=== PATIENT | male | born 1985 | race Two or more races ===

== ENCOUNTER 2016-08-15 00:20 | Emergency (ER) | payer MEDICAID ==
[2016-08-15] MEDS ORDERED: Sodium Chloride 0.9% 10 ML Syringe FLUSH PRN (00:30)
[2016-08-15] MEDS ORDERED: Sodium Chloride 0.9% 1,000 ML IV ONE (00:30)
[2016-08-15] MEDS ORDERED: GI Cocktail Oral Solution 30 ML PO ONE (00:31)
[2016-08-15] MEDS ORDERED: Ondansetron 4 MG/2 ML SDV IVPUSH ONE (00:31)
[2016-08-15 00:32] VITALS: BP 143/79
[2016-08-15 01:18] LABS: CHLORIDE,CL 104 mmol/L (98-107); SODIUM,NA 142 mmol/L (136-145)
[2016-08-15] MEDS ORDERED: Famotidine 20 MG Tab PO ONE (01:48)
[2016-08-15] MEDS ORDERED: Aluminum Hydroxide/Magnesium Hydroxide/Simethicone Susp 30 ML Cup PO ONE (01:48)
[2016-08-15] MEDS ORDERED: Take Home: Ondansetron 4 MG Tab.DIS, 2 Tab Pack PO ONE (01:49)
--- NOTE | 2016-08-15 06:59 | ER ---
Date of Service: 08/15/2016 SUBJECTIVE: Fermin presents to the emergency room with complaints of epigastric pain. He states that the discomfort woke him from his sleep. He characterizes the discomfort as a burning sensation. He states that he did go out drinking last night and states that he has been experiencing some gastritis since that time. He states that he is nauseated and did vomit several times. He states that he has not experienced discomfort like this in the past. Again, he did eat several hours ago. The discomfort woke him from his sleep and does not appear to have a postprandial presentation. PAST MEDICAL HISTORY: 1. Seizure disorder. 2. Chronic neck and back pain. MEDICATIONS: Cyclobenzaprine 10 mg every 8 hours p.r.n. ALLERGIES: NKDA. REVIEW OF SYSTEMS: General: No fever or chills. HEENT: No sore throat, rhinorrhea, or congestion. Respiratory: No shortness of breath. Cardiac: Denies any substernal chest pain. No jaw, arm, neck, or back pain. Gastrointestinal: Complains of diffuse upper abdominal pain. Does complain of acidic feeling in his throat as well. Denies any melena, hematochezia, hematemesis. Genitourinary: Denies any dysuria. Musculoskeletal: No myalgias or arthralgias. PHYSICAL EXAMINATION: General: This is a 31-year-old male patient, who is in no acute distress. Vital Signs: Blood pressure is 143/79, pulse rate 80, temperature is 36.8, respiratory rate is 20, O2 saturations 100%. Skin: Warm, pink, and dry. HEENT: Head is normocephalic and atraumatic. Mouth, oral mucosa is moist. Lungs: Clear to auscultation. Heart: Regular rate and rhythm. Abdomen: Soft, diffusely tender in the upper abdominal region. He has no guarding. No rigidity noted. No hepatosplenomegaly noted. Bowel sounds are normoactive. Extremities: Without edema. Neurologic: He is alert and oriented. Answers all questions appropriately. LABORATORY DATA: WBCs 11.4, hemoglobin is 16.1, platelets are 168. Chemistry; sodium is 142, potassium is 3.3, chloride is 104, bicarb is 27, BUN is 22, creatinine is 0.8. Creatinine clearance was 100. GFR is greater than 60. Glucose is 113, calcium is 8.8, corrected calcium is 9.0, total bilirubin is 0.7, AST is 21, ALT is 28, alkaline phosphatase is 89, total protein is 6.9, albumin is 3.7, lipase is 84. EMERGENCY ROOM COURSE: IV access was established. The patient was given a liter of normal saline IV. He was given Zofran 4 mg IV and was also given GI cocktail. He was also given an extra 30 mL of Mylanta in addition to the GI cocktail. The patient was also given Pepcid 20 mg p.o. He did report some improvement in his discomfort. He stated his nausea was improving as well. He remained stable in my care in the emergency room. ASSESSMENT: Gastritis. PLAN: The patient will be discharged. Zofran ODT 1 every 8 hours as needed for nausea and vomiting. He was given 2 for August supply here in the hospital to take home. Obtain Pepcid and take 1 ODT tablet every 8 hours, 120 mg over-the- counter tablets starting tomorrow morning. Establish care and follow up in the clinic in the next 7 days. All questions were answered. MWK: 08/15/2016 02:04:39 MODL: 08/15/2016 06:52:49 /[id number]
== END 2016-08-15 02:11 | disposition home or self-care (01) ==
LOC: VM.ED 00:20
DX: K52.9 Noninfective gastroenteritis and colitis, unspecified (principal)
CPT/HCPCS: 80053; 83690; 85025; 96361; 96374; 99284; A9270; J2405; J7030

== ENCOUNTER 2016-08-27 00:15 | Emergency (ER) | payer MEDICAID ==
[2016-08-27] MEDS ORDERED: Ketorolac 30 MG/ML SDV IVPUSH ONE (00:18)
[2016-08-27] MEDS ORDERED: Sodium Chloride 0.9% 10 ML Syringe FLUSH PRN (00:18)
--- NOTE | 2016-08-27 00:28 | EDM.PDOC ---
ED HPI SEIZURE COMPLAINT - General Chief Complaint: Neurological Problem Stated Complaint: Seizure Time Seen by Provider: 08/27/16 00:20 Source of Information: Reports: Patient, EMS notes reviewed, RN, RN notes reviewed History Limitations: Reports: No limitations - History of Present Illness INITIAL COMMENTS - FREE TEXT/NARRATIVE: Patient is brought to the ED at [facility] via EMS s/p seizure at home. Patient states he was laying in bed and the next thing he remembered waking up feeling very tired and confused. He then called 911. Patient has a long standing history of seizures. Patient admits he is non-compliant with taking his seizure medication due to financial issues. Patient denies any head injury or trauma. Patient denies any N/V/D. No loss of bowel or bladder function. Patient has had many seizures in the past due to not having the medication. Symptom Onset Date: 08/26/16 Symptom Onset Time: 23:42 Timing/Duration: Reports: resolved prior to arrival Event Occurred (Where): home Event (Witnessed/Unwitnessed): unwitnessed Quality: Reports: other (unknown as patien was home alone) Context: Reports: missed med dose(s) Pre Event Symptom(s): Reports: no other symptoms Event Symptoms: Denies: incontinence, tongue biting Post Event Symptoms: Reports: confused, headache Treatments [employer]: Reports: Other (see below) (none) - Related Data Allergies/ADRs: Allergies Allergy/AdvReac Type Severity Reaction Status Date / Time No Known Allergies Allergy Verified 08/27/16 00:15 Past Medical History Neurological History: Reports: Seizure, Other (see below) Other Neuro History: Diagnosed with seizures roughly 5 years ago while in skilled nursing. States he stopped taking his medication because it made him feel aggressive. Psychiatric History: Reports: Depression - Past Surgical History HEENT Surgical History: Reports: Oral surgery, Tonsillectomy Social & Family History - Family History Family Medical History: Noncontributory - Tobacco Use Smoking Status *Q: Current Some Day Smoker Years of Tobacco use: 1 Packs/Tins Daily: 0.1 Used Tobacco, but Quit: No - Caffeine Use Caffeine Use: Reports: None - Recreational Drug Use Recreational Drug Use: No ED ROS GENERAL - Review of Systems Review Of Systems: See Below Constitutional: Denies: fever, chills, weakness Respiratory: Denies: shortness of breath, cough Cardiovascular: Denies: Chest pain, Palpitations GI/Abdominal: Denies: Abdominal pain, Diarrhea, Nausea, Vomiting Skin: Reports: no symptoms Neurological: Reports: confusion, headache, seizure - Physical Exam Exam: See Below Exam Limited By: No limitations General Appearance: alert, no apparent distress Eye Exam: bilateral eye: EOMI, normal inspection, PERRL Throat/Mouth: Normal inspection, Normal gums, Normal oropharynx, No airway compromise Head Exam: atraumatic, normocephalic Neck: supple Respiratory/Chest: no respiratory distress, lungs clear, normal breath sounds Cardiovascular: regular rate, rhythm GI/Abdominal: normal bowel sounds, soft, non tender Neuro Exam (Abbreviated): alert, oriented, normal cognition Skin Exam: Warm, Dry, Intact, Normal color, No rash Course - Orders/Labs/Meds Orders: Active Orders 24 hr Category Date Time Status Head wo Cont [CT] Stat Exams 08/27/16 00:16 Taken CARBAMAZEPINE [REF] Stat Lab 08/27/16 00:30 Received Sodium Chloride 0.9% [Normal Saline] 1,000 ml Med 08/27/16 00:30 Active IV ASDIRECTED Sodium Chloride 0.9% [Saline Flush] Med 08/27/16 00:18 Active 10 ml FLUSH ASDIRECTED PRN Peripheral IV Insertion Adult [OM.PC] Routine Oth 08/27/16 00:18 Ordered Medication Orders Sodium Chloride (Normal Saline) 1,000 mls @ 999 mls/hr IV ASDIRECTED JONATAN Last Admin: 08/27/16 00:35 Dose: 999 mls/hr Sodium Chloride (Saline Flush) 10 ml FLUSH ASDIRECTED PRN PRN Reason: Keep Vein Open Labs: Laboratory Tests 08/27/16 08/27/16 08/27/16 Range/Units 00:30 00:30 01:11 WBC 8.6 (4.0-10.0) x10^3/uL RBC 5.39 (4.5-6.0) x10^6/uL Hgb 16.3 (14.0-18.0) g/dL Hct 47.8 (40.0-52.0) % MCV 88.7 (78.0-93.0) fL MCH 30.2 (26.0-32.0) pg MCHC 34.1 (32.0-36.0) g/dL RDW Coeff of Jovita 12.3 (10.0-15.0) % Plt Count 191 (130-400) x10^3/uL Neut % (Auto) 52.7 (50.0-80.0) % Lymph % (Auto) 33.9 (25.0-50.0) % Nicol[place] % (Auto) 10.6 (2.0-11.0) % Eos % (Auto) 2.6 (0.0-4.0) % Baso % (Auto) 0.2 (0.2-1.2) % Sodium 139 (136-145) mmol/L Potassium 3.2 L (3.5-5.1) mmol/L Chloride 104 (98-107) mmol/L Carbon Dioxide 28 (21-32) mmol/L BUN 20 H (7-18) mg/dL Creatinine 0.9 (0.70-1.30) mg/dL Est Cr Clr Drug Dosing TNP Estimated GFR (MDRD) > 60 Glucose 124 H (74-106) mg/dL Calcium 7.9 L (8.5-10.1) mg/dL Urine Color (YELLOW) Urine Appearance (CLEAR) Urine pH (5.0-8.0) Ur Specific [place] Urine Protein (NEGATIVE) mg/dL Urine Glucose (UA) (NEGATIVE) mg/dL Urine Ketones (NEGATIVE) mg/dL Urine Occult Blood (NEGATIVE) Urine Nitrite (NEGATIVE) Urine Bilirubin (NEGATIVE) Urine Urobilinogen (0.2) EU/dL Ur Leukocyte Esterase (NEGATIVE) Urine RBC (NOT SEEN) /HPF Urine WBC (NOT SEEN) /HPF Ur Squamous Epith Cells (NEGATIVE) /HPF Amorphous Sediment Urine Bacteria (NEGATIVE) /HPF Urine Mucus (NEGATIVE) /LPF Urine Opiates Screen Negative (NEAGTIVE) Ur Buprenorphine Scrn Negative (NEGATIVE) Ur Oxycodone Screen Negative (NEGATIVE) Urine Methadone Screen Negative (NEGATIVE) Ur Barbiturates Screen Negative (NEGATIVE) Ur Tricyclics Screen Negative (NEGATIVE) Ur Amphetamine Screen Negative (NEGATIVE) U Methamphetamines Scrn Negative (NEGATIVE) Urine MDMA Screen Negative (NEGATIVE) U Benzodiazepines Scrn Negative (NEGATIVE) U Cocaine Metab Screen Negative (NEGATIVE) U Marijuana (THC) Screen Negative (NEGATIVE) 08/27/16 Range/Units 01:11 WBC (4.0-10.0) x10^3/uL RBC (4.5-6.0) x10^6/uL Hgb (14.0-18.0) g/dL Hct (40.0-52.0) % MCV (78.0-93.0) fL MCH (26.0-32.0) pg MCHC (32.0-36.0) g/dL RDW Coeff of Jovita (10.0-15.0) % Plt Count (130-400) x10^3/uL Neut % (Auto) (50.0-80.0) % Lymph % (Auto) (25.0-50.0) % Nicol[place] % (Auto) (2.0-11.0) % Eos % (Auto) (0.0-4.0) % Baso % (Auto) (0.2-1.2) % Sodium (136-145) mmol/L Potassium (3.5-5.1) mmol/L Chloride (98-107) mmol/L Carbon Dioxide (21-32) mmol/L BUN (7-18) mg/dL Creatinine (0.70-1.30) mg/dL Est Cr Clr Drug Dosing Estimated GFR (MDRD) Glucose (74-106) mg/dL Calcium (8.5-10.1) mg/dL Urine Color Yellow (YELLOW) Urine Appearance Slightly cloudy H (CLEAR) Urine pH 7.0 (5.0-8.0) Ur Specific [place] 1.025 Urine Protein Negative (NEGATIVE) mg/dL Urine Glucose (UA) Negative (NEGATIVE) mg/dL Urine Ketones Trace H (NEGATIVE) mg/dL Urine Occult Blood Negative (NEGATIVE) Urine Nitrite Negative (NEGATIVE) Urine Bilirubin Negative (NEGATIVE) Urine Urobilinogen 1.0 (0.2) EU/dL Ur Leukocyte Esterase Negative (NEGATIVE) Urine RBC Not seen (NOT SEEN) /HPF Urine WBC 0-5 (NOT SEEN) /HPF Ur Squamous Epith Cells Not seen (NEGATIVE) /HPF Amorphous Sediment Moderate Urine Bacteria Rare (NEGATIVE) /HPF Urine Mucus Many H (NEGATIVE) /LPF Urine Opiates Screen (NEAGTIVE) Ur Buprenorphine Scrn (NEGATIVE) Ur Oxycodone Screen (NEGATIVE) Urine Methadone Screen (NEGATIVE) Ur Barbiturates Screen (NEGATIVE) Ur Tricyclics Screen (NEGATIVE) Ur Amphetamine Screen (NEGATIVE) U Methamphetamines Scrn (NEGATIVE) Urine MDMA Screen (NEGATIVE) U Benzodiazepines Scrn (NEGATIVE) U Cocaine Metab Screen (NEGATIVE) U Marijuana (THC) Screen (NEGATIVE) Meds: Medications Generic Name Dose Route Start Last Admin Trade Name Freq PRN Reason Stop Dose Admin Sodium Chloride 1,000 mls @ 999 mls/hr 08/27/16 00:30 08/27/16 00:35 Normal Saline IV 999 mls/hr ASDIRECTED JONATAN Administration Sodium Chloride 10 ml 08/27/16 00:18 Saline Flush FLUSH ASDIRECTED PRN Keep Vein Open Discontinued Medications Generic Name Dose Route Start Last Admin Trade Name Freq PRN Reason Stop Dose Admin Ketorolac Tromethamine 30 mg 08/27/16 00:18 08/27/16 00:35 Toradol IVPUSH 08/27/16 00:19 30 mg ONETIME ONE Administration Potassium Chloride 40 meq 08/27/16 01:10 Klor-Con M20 PO 08/27/16 01:11 ONETIME ONE Departure - Departure Time of Disposition: 01:33 Disposition: Home, Self-Care 01 Condition: good Clinical Impression: Seizure disorder Instructions: Seizure, Adult, [id number] Referrals: PCP,None [Primary Care Provider] - Forms: ED Department Discharge Additional Instructions: 1. Stay well hydrated and rest 2. Take your seizure medications 3. Make an appointment to establish care with a Primary care provider ED Communication - ED Communication Date/Time Date: 08/27/16 Time Called: 01:33 - Discussed Case With (1) Discussed Case With (1): Radiologist Person/s Notified (1): Jaylen Almazan - Conversation Summary Radiology Reading Discussed with Radiologist: Yes Summary Comment: CT of Head does not show any acute pathology; normal CT of head - Problem List Review Problem List Initiated/Reviewed/Updated: Yes - My Orders Last 24 Hours: My Active Orders 08/27/16 00:16 Head wo Cont [CT] Stat 08/27/16 00:18 Sodium Chloride 0.9% [Saline Flush] 10 ml FLUSH ASDIRECTED PRN Peripheral IV Insertion Adult [OM.PC] Routine 08/27/16 00:30 CARBAMAZEPINE [REF] Stat Sodium Chloride 0.9% [Normal Saline] 1,000 ml IV ASDIRECTED - Assessment/Plan Last 24 Hours: My Active Orders 08/27/16 00:16 Head wo Cont [CT] Stat 08/27/16 00:18 Sodium Chloride 0.9% [Saline Flush] 10 ml FLUSH ASDIRECTED PRN Peripheral IV Insertion Adult [OM.PC] Routine 08/27/16 00:30 CARBAMAZEPINE [REF] Stat Sodium Chloride 0.9% [Normal Saline] 1,000 ml IV ASDIRECTED
[2016-08-27] MEDS ORDERED: Sodium Chloride 0.9% 1,000 ML IV SCH (00:30)
[2016-08-27 00:48] LABS: CHLORIDE,CL 104 mmol/L (98-107); SODIUM,NA 139 mmol/L (136-145)
[2016-08-27] MEDS ORDERED: Potassium Chloride 20 MEQ Tab.ER PO ONE (01:10)
[2016-08-27] MEDS ORDERED: Potassium Chloride 20 MEQ Tab.ER ONE (01:45)
[2016-08-27 02:42] VITALS: BP 132/78
== END 2016-08-27 01:55 | disposition home or self-care (01) ==
LOC: VM.ED 00:15
DX: G40.909 Epilepsy, unspecified, not intractable, without status epilepticus (principal)
CPT/HCPCS: 70450; 80048; 80156; 80305; 81001; 85025; 96365; 96375; 99285; A9270; J1885; J7030

== ENCOUNTER 2016-09-27 00:35 | Emergency (ER) | payer MEDICAID ==
[2016-09-27] MEDS ORDERED: carBAMazepine 200 MG Tab PO ONE (01:10)
--- NOTE | 2016-09-27 01:28 | EDM.PDOC ---
[id number]: Out of seizure medication Time Seen by Provider: 09/27/16 01:07 Source of Information: Reports: Patient History Limitations: Reports: No limitations - History of Present Illness INITIAL COMMENTS - FREE TEXT/NARRATIVE: Patient here because he states he feels like a seizure is coming on. He states he is out of his tegretol due to it falling out of his work clothes. 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 He describes his aura as being light sensitive, sound sensitive, feeling tired and stressed. His only complaint is being tired. No headache, no unilateral weakness. States he has had a sore throat for the last 2 weeks. No fever, chills, sweating. Eating and drinking fine. No bowel or bladder problems. Symptom Onset Date: 09/26/16 Timing/Duration: Reports: gradual onset Context: Reports: missed med dose(s) Pre Event Symptom(s): Reports: aura Event Symptoms: Reports: no other symptoms - Related Data Allergies/ADRs: Allergies Allergy/AdvReac Type Severity Reaction Status Date / Time No Known Allergies Allergy Verified 08/27/16 00:15 Home Meds: Home Meds . [Unable to Verify Home Med List] 08/27/16 [History] Past Medical History Neurological History: Reports: Seizure, Other (see below) Other Neuro History: Diagnosed with seizures roughly 5 years ago while in nursing home. States he stopped taking his medication because it made him feel aggressive. Psychiatric History: Reports: Depression - Past Surgical History HEENT Surgical History: Reports: Oral surgery, Tonsillectomy Social & Family History - Family History Family Medical History: Noncontributory - Tobacco Use Smoking Status *Q: Current Some Day Smoker Years of Tobacco use: 1 Packs/Tins Daily: 0.1 Used Tobacco, but Quit: No - Caffeine Use Caffeine Use: Reports: None - Recreational Drug Use Recreational Drug Use: No ED ROS GENERAL - Review of Systems Review Of Systems: ROS reveals no pertinent complaints other than HPI. - Physical Exam Exam: See Below Exam Limited By: No limitations General Appearance: alert, WD/WN, no apparent distress Eye Exam: bilateral eye: EOMI, PERRL Ears: normal external exam, normal TMs Nose: normal inspection Throat/Mouth: Normal inspection, Normal oropharynx Head Exam: atraumatic, normocephalic Neck: normal inspection Respiratory/Chest: no respiratory distress, lungs clear, normal breath sounds Cardiovascular: normal peripheral pulses, regular rate, rhythm, no edema GI/Abdominal: normal bowel sounds, soft, non tender Neuro Exam (Abbreviated): alert, oriented, CN II-XII intact, normal cognition, normal gait, normal reflexes, no motor/sensory deficits Extremities: normal inspection, normal range of motion, normal capillary refill Psychiatric: normal affect, flat affect Skin Exam: Warm, Dry, Intact, Normal color Course - Orders/Labs/Meds Orders: Active Orders 24 hr Category Date Time Status CARBAMAZEPINE [REF] Stat Lab 09/27/16 01:52 Received Meds: Medications Discontinued Medications Generic Name Dose Route Start Last Admin Trade Name Freq PRN Reason Stop Dose Admin Carbamazepine 200 mg 09/27/16 01:10 Tegretol Tab PO 09/27/16 01:11 ONETIME ONE Departure - Departure Time of Disposition: 01:56 Disposition: Home, Self-Care 01 Condition: good Clinical Impression: Seizure disorder Instructions: Epilepsy, [id number] Additional Instructions: I gave you a dose of carbamazepine for this evening as well as a prescription for the next month. You need to establish with a primary care doctor that can both monitor your seizure medication, as well as provide information and assistance with any lingering issues you may have. You need to get plenty of rest, drink water and protect your medications. Please call us with any questions or concerns in the meantime. - Problem List & Annotations (1) Seizure disorder SNOMED Code(s): 954509584 Code(s): G40.909 - EPILEPSY, UNSP, NOT INTRACTABLE, WITHOUT STATUS EPILEPTICUS Status: Acute Priority: Low Current Visit: Yes - Problem List Review Problem List Initiated/Reviewed/Updated: Yes - My Orders Last 24 Hours: My Active Orders 09/27/16 01:52 CARBAMAZEPINE [REF] Stat - Assessment/Plan Last 24 Hours: My Active Orders 09/27/16 01:52 CARBAMAZEPINE [REF] Stat Assessment:: seizure disorder Plan: I gave you a dose of carbamazepine for this evening as well as a prescription for the next month. You need to establish with a primary care doctor that can both monitor your seizure medication, as well as provide information and assistance with any lingering issues you may have. You need to get plenty of rest, drink water and protect your medications. Please call us with any questions or concerns in the meantime.
[2016-09-27 07:30] VITALS: BP 110/61
== END 2016-09-27 01:56 | disposition home or self-care (01) ==
LOC: VM.ED 00:35
DX: G40.909 Epilepsy, unspecified, not intractable, without status epilepticus (principal); F32.9 Major depressive disorder, single episode, unspecified; Z98.890 Other specified postprocedural states
CPT/HCPCS: 36415; 80156; 99284; A9270

== ENCOUNTER 2016-12-04 19:36 | Emergency (ER) | payer MEDICAID ==
[2016-12-04] MEDS ORDERED: Doxycycline 100 MG Cap PO ONE (20:01)
--- NOTE | 2016-12-04 20:09 | EDM.PDOC ---
ED HPI GENERAL MEDICAL PROBLEM - General Chief Complaint: General Stated Complaint: nausea, unable to eat, tick bites Time Seen by Provider: 12/04/16 19:51 Source of Information: Reports: Patient History Limitations: Reports: No Limitations - History of Present Illness INITIAL COMMENTS - FREE TEXT/NARRATIVE: Patient states he removed ticks from his body on Saturday night. He is complaining of a headache, nausea, inability to eat for the last several days. No fever. Has been seen here in the past. 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 No shortness of breath, no neck stiffness, no abdominal pain, no red spots on his flank where tick were removed. He has no other complaints. History of seizure disorder. Onset Date: 12/03/16 Severity: Moderate Associated Symptoms: Reports: Headaches, Malaise, Nausea/Vomiting - Related Data Allergies Allergy/AdvReac Type Severity Reaction Status Date / Time No Known Allergies Allergy Verified 12/12/16 00:36 Home Meds: Home Meds carBAMazepine [Tegretol] 200 mg PO BID 09/27/16 [History] Past Medical History Neurological History: Reports: Seizure, Other (See Below) Other Neuro History: Diagnosed with seizures roughly 5 years ago while in longterm. States he stopped taking his medication because it made him feel aggressive. Psychiatric History: Reports: Depression - Past Surgical History HEENT Surgical History: Reports: Oral Surgery, Tonsillectomy Social & Family History - Family History Family Medical History: Noncontributory - Tobacco Use Smoking Status *Q: Current Some Day Smoker Years of Tobacco use: 1 Packs/Tins Daily: 0.1 Used Tobacco, but Quit: No - Caffeine Use Caffeine Use: Reports: None - Recreational Drug Use Recreational Drug Use: No ED ROS GENERAL - Review of Systems Review Of Systems: See Below Constitutional: Reports: Decreased Appetite HEENT: Reports: No Symptoms Respiratory: Reports: No Symptoms Cardiovascular: Reports: No Symptoms Endocrine: Reports: No Symptoms GI/Abdominal: Reports: Nausea Musculoskeletal: Reports: No Symptoms Skin: Reports: No Symptoms Neurological: Reports: Headache Psychiatric: Reports: No Symptoms Hematologic/Lymphatic: Reports: No Symptoms Immunologic: Reports: No Symptoms ED EXAM, GENERAL - Physical Exam Exam: See Below Exam Limited By: No Limitations General Appearance: Alert, WD/WN, No Apparent Distress Eye Exam: Bilateral Eye: EOMI, PERRL Ears: Normal TMs Throat/Mouth: Normal Inspection, Normal Oropharynx Head: Atraumatic, Normocephalic Neck: Normal Inspection, Supple, Non-Tender Respiratory/Chest: No Respiratory Distress, Lungs Clear, Normal Breath Sounds Cardiovascular: Normal Peripheral Pulses, Regular Rate, Rhythm, No Edema GI/Abdominal: Normal Bowel Sounds, Soft, Non-Tender, No Organomegaly, No Distention Extremities: Normal Inspection, Normal Range of Motion, Non-Tender, No Pedal Edema, Normal Capillary Refill Neurological: Alert, Oriented, CN II-XII Intact, Normal Cognition Psychiatric: Normal Affect, Normal Mood Skin Exam: Warm, Dry, Intact, Normal Color, No Rash Lymphatic: No Adenopathy Course - Vital Signs Last Recorded V/S: Last Vital Signs Temp 36.9 C 12/04/16 19:50 Pulse 102 H 12/04/16 19:50 Resp 16 12/04/16 19:50 BP 136/79 12/04/16 19:50 Pulse Ox 96 12/04/16 19:50 - Orders/Labs/Meds Meds: Medications Discontinued Medications Generic Name Dose Route Start Last Admin Trade Name Ari PRN Reason Stop Dose Admin Doxycycline Hyclate 200 mg 12/04/16 20:01 12/04/16 20:20 Vibramycin PO 12/04/16 20:02 200 mg ONETIME ONE Administration Departure - Departure Time of Disposition: 20:21 Disposition: Home, Self-Care 01 Condition: Good Clinical Impression: Dehydration symptoms, Nausea - Discharge Information Instructions: Rehydration, Adult, Nausea, Adult, [id number], Dehydration, Adult, [id number] Referrals: PCP,Unknown [Primary Care Provider] - Forms: ED Department Discharge Additional Instructions: I did treat you with a one time dose of Doxycycline as prophylaxis against some tick born illnesses. I do believe rather that you are dehydrated and may also have a stomach viral gastroenteritis that is causing your nausea. You are not drinking enough water per your own admission, you should be drinking at minimum 75-80 oz daily and with your work outside, more than that. Please go to one of the clinics in [facility] to establish a primary doctor as this is an emergency room and not a walk in or urgent care clinic. You need to have a primary to help manage your seizure disorder, as well as to follow up with any potential tick borne illness. Please call with any questions or concerns. - Problem List & Annotations (1) Dehydration symptoms SNOMED Code(s): 4035433 Code(s): R63.8 - OTHER SYMPTOMS AND SIGNS CONCERNING FOOD AND FLUID INTAKE Status: Acute Priority: Low (2) Nausea SNOMED Code(s): 250485020 Code(s): R11.0 - NAUSEA Status: Acute Priority: Low - Problem List Review Problem List Initiated/Reviewed/Updated: No - Assessment/Plan Assessment:: dehydration viral gastroenteritis Plan: I did treat you with a one time dose of Doxycycline as prophylaxis against some tick born illnesses. I do believe rather that you are dehydrated and may also have a stomach viral gastroenteritis that is causing your nausea. You are not drinking enough water per your own admission, you should be drinking at minimum 75-80 oz daily and with your work outside, more than that. Please go to one of the clinics in [facility] to establish a primary doctor as this is an emergency room and not a walk in or urgent care clinic. You need to have a primary to help manage your seizure disorder, as well as to follow up with any potential tick borne illness. Please call with any questions or concerns.
[2016-12-04 20:17] VITALS: BP 136/79
== END 2016-12-04 20:25 | disposition home or self-care (01) ==
LOC: VM.ED 19:36
DX: E86.0 Dehydration (principal); R11.0 Nausea; F17.210 Nicotine dependence, cigarettes, uncomplicated; Z98.890 Other specified postprocedural states
CPT/HCPCS: 99283; A9270

== ENCOUNTER 2016-12-12 00:30 | Emergency (ER) | payer MEDICAID ==
[2016-12-12 00:37] VITALS: BP 122/77
[2016-12-12] MEDS ORDERED: Ketorolac 60 MG/2 ML SDV IM ONE (00:42)
--- NOTE | 2016-12-12 00:42 | EDM.PDOC ---
ED HPI GENERAL MEDICAL PROBLEM - General Chief Complaint: Headache Stated Complaint: headache Time Seen by Provider: 12/12/16 00:37 Source of Information: Reports: Patient, RN, RN Notes Reviewed History Limitations: Reports: No Limitations - History of Present Illness INITIAL COMMENTS - FREE TEXT/NARRATIVE: Patient presents to the ED at [facility] complaining of a headache that started just 2 hours ago. Patient denies any injury or trauma. Patient states the pain is throbbing in nature and rates his pain 10/10. He did not take any OTC medications for his pain. No history of any migraines. Patient denies any N/ V/D. Patient does complain of photophobia. No visual field disturbances. Pain is located around the left episcopalian area. Onset Date: 12/11/16 Onset Time: 22:00 Duration: Constant Location: Reports: Head Quality: Reports: Throbbing Severity: Severe Improves with: Reports: None Worsens with: Reports: Movement Context: Denies: Activity, Exercise, Lifting, Sick Contact, Trauma Headache Pain Score (Numeric/FACES): 10 - Related Data Allergies Allergy/AdvReac Type Severity Reaction Status Date / Time No Known Allergies Allergy Verified 12/12/16 00:36 Home Meds: Home Meds carBAMazepine [Tegretol] 200 mg PO BID 09/27/16 [History] Past Medical History Neurological History: Reports: Seizure, Other (See Below) Other Neuro History: Diagnosed with seizures roughly 5 years ago while in [place]. Psychiatric History: Reports: Depression - Past Surgical History HEENT Surgical History: Reports: Oral Surgery, Tonsillectomy Social & Family History - Family History Family Medical History: Noncontributory - Tobacco Use Smoking Status *Q: Current Some Day Smoker Years of Tobacco use: 1 Packs/Tins Daily: 0.2 Used Tobacco, but Quit: No - Caffeine Use Caffeine Use: Reports: None - Recreational Drug Use Recreational Drug Use: No ED ROS GENERAL - Review of Systems Review Of Systems: See Below Constitutional: Denies: Fever, Chills, Weakness HEENT: Denies: Vision Change Respiratory: Denies: Shortness of Breath, Cough Cardiovascular: Denies: Chest Pain, Palpitations GI/Abdominal: Denies: Abdominal Pain, Nausea, Vomiting Skin: Reports: No Symptoms Neurological: Reports: Headache. Denies: Dizziness, Numbness, Paresthesia, Tingling - Physical Exam Exam: See Below Exam Limited By: No Limitations General Appearance: Alert, No Apparent Distress Eye Exam: Bilateral Eye: EOMI, Normal Inspection, PERRL Ears: Normal External Exam, Normal Canal, Normal TMs Head Exam: Atraumatic, Normocephalic Neck: Supple, Non-Tender, Full Range of Motion Respiratory/Chest: No Respiratory Distress, Lungs Clear, Normal Breath Sounds Cardiovascular: Normal Peripheral Pulses, Regular Rate, Rhythm GI/Abdominal: Normal Bowel Sounds, Soft, Non-Tender Neuro Exam (Abbreviated): Alert, Oriented, Normal Cognition Skin Exam: Warm, Dry, Intact, Normal Color, No Rash Course - Vital Signs Last Recorded V/S: Last Vital Signs Temp 36.1 C 12/12/16 00:34 Pulse 74 12/12/16 00:34 Resp 18 12/12/16 00:34 BP 122/77 12/12/16 00:34 Pulse Ox 98 12/12/16 00:34 - Orders/Labs/Meds Meds: Medications Discontinued Medications Generic Name Dose Route Start Last Admin Trade Name Ari PRN Reason Stop Dose Admin Chlorpromazine HCl 50 mg 12/12/16 00:42 Thorazine IM 12/12/16 00:43 ONETIME ONE Ketorolac Tromethamine 60 mg 12/12/16 00:42 Toradol IM 12/12/16 00:43 ONETIME ONE Departure - Departure Time of Disposition: 00:49 Disposition: Home, Self-Care 01 Condition: Good Clinical Impression: Cluster headache Qualifiers: Headache chronicity pattern: unspecified pattern Intractability: not intractable Qualified Code(s): G44.009 - Cluster headache syndrome, unspecified , not intractable - Discharge Information Instructions: Cluster Headache Referrals: PCP,Unobtain [Primary Care Provider] - Forms: ED Department Discharge Additional Instructions: 1. Stay well hydrated and rest 2. May alternate Tylenol/Advil as needed for head pain 3. PLEASE establish care in a clinic; this ER is not a walk-in or clinic - Problem List Review Problem List Initiated/Reviewed/Updated: Yes
== END 2016-12-12 00:57 | disposition home or self-care (01) ==
LOC: VM.ED 00:30
DX: G44.009 Cluster headache syndrome, unspecified, not intractable (principal); F17.210 Nicotine dependence, cigarettes, uncomplicated; F32.9 Major depressive disorder, single episode, unspecified; Z98.890 Other specified postprocedural states
CPT/HCPCS: 96372; 99283; J1885; J3230

== ENCOUNTER 2022-07-25 01:25 | Emergency (ER) | payer BC, MEDICAID ==
[2022-07-25] MEDS ORDERED: Lidocaine 1% with EPINEPHrine 1:100,000 20 ML MDV INFILT ONE (01:31)
[2022-07-25 04:01] VITALS: BP 165/90; PULSE 125
== END 2022-07-25 02:10 | disposition home or self-care (01) ==
LOC: VM.ED 01:25
DX: S01.01XA Laceration without foreign body of scalp, initial encounter (principal); Y09 Assault by unspecified means
CPT/HCPCS: 12002; 99283; J3490